=== PATIENT | female | born 1990 ===

== ENCOUNTER 2018-02-21 21:55 | Emergency (ER) | payer BC ==
[2018-02-21 22:07] VITALS: O2SAT 99
--- NOTE | 2018-02-21 22:12 | C.PDOC ---
History Of Present Illness 27 yr old female w/ hx of IBS p/w chest pain. Pt notes CP started at 1600, left sided, stabbing like, without radiation. No pleuritic chest pain or pain w/ deep inspiration. No fall or trauma. No headache, nausea or vomiting. No hx of blood clots, recent flights abroad or recent surgery. No OCP or hormone usage. Pt denies any orthopnea, PND or leg swelling. No family hx of LA or stroke. Pt did not take any medications for her pain. No drug use or smoking. No N/V No other complaints. Time Seen by Provider: 02/21/18 22:10 Chief Complaint (Nursing): Chest Pain Past Medical History Vital Signs: Last Vital Signs Temp 98.4 F 02/21/18 22:03 Pulse 73 02/21/18 22:03 Resp 20 02/21/18 22:03 BP 139/90 02/21/18 22:03 Pulse Ox 99 02/21/18 22:03 Family History: States: No Known Family Hx - Social History Hx Alcohol Use: No Hx Substance Use: No - Immunization History Hx Tetanus Toxoid Vaccination: No Hx Influenza Vaccination: No Hx Pneumococcal Vaccination: No Review Of Systems Constitutional: Negative for: Fever, Chills, Sweats, Weakness, Malaise Eyes: Negative for: Pain, Vision Change ENT: Negative for: Ear Pain, Ear Discharge, Nose Pain, Nose Congestion, Mouth Pain, Mouth Swelling Cardiovascular: Positive for: Chest Pain. Negative for: Palpitations, Orthopnea, Paroxysmal Noc. Dyspnea, Edema, Light Headedness Respiratory: Negative for: Cough, Shortness of Breath, SOB with Excertion, Pleuritic Pain Gastrointestinal: Negative for: Nausea, Vomiting, Abdominal Pain, Constipation, Melena, Hematochezia Genitourinary: Negative for: Dysuria, Frequency, Hematuria Musculoskeletal: Negative for: Neck Pain, Back Pain Skin: Negative for: Rash, Lesions Neurological: Negative for: Weakness, Numbness, Incoordination, Confusion, Seizures Psych: Negative for: Anxiety, Depression, Psychosis, Suicidal ideation Physical Exam - Physical Exam Appears: Well, Non-toxic, No Acute Distress Skin: Normal Color, Warm, Dry Head: Atraumatic, Normacephalic, No Tenderness Eye(s): bilateral: Normal Inspection, PERRL, EOMI Ear(s): Bilateral: Normal Nose: Normal, No Flaring, No Discharge Oral Mucosa: No Moist Tongue: No Normal Appearing, No Swelling Throat: Normal, No Erythema Neck: Normal, Normal ROM, Supple, Other (no ) Chest: Symmetrical, Deformity, No Tenderness Cardiovascular: Rhythm Regular, No Rhythm Irregular, No Edema, No Friction Rub, No Murmur, No JVD Respiratory: Normal Breath Sounds Gastrointestinal/Abdominal: Normal Exam Back: Normal Inspection, No CVA Tenderness Extremity: Normal ROM Extremity: Bilateral: Atraumatic Pulses: Left Dorsalis Pedis: Normal, Right Dorsalis Pedis: Normal Neurological/Psych: Oriented x3, Normal Speech, Normal Cognition, Normal Cranial Nerves, No Cerebellar Signs, Normal Motor, Normal Sensation Extremity: Right: No Drift, Left: No Drift, Upper: No Drift, Lower: No Drift ED Course And Treatment - Laboratory Results Result Diagrams: 02/21/18 22:15 02/21/18 22:15 O2 Sat by Pulse Oximetry: 99 Medical Decision Making Medical Decision MakinF yr old female w/ hx of IBS p/w chest pain, L sided without radiation, sharp stabbing, non pleuritic in nature. Low pretest wells, perced out. CP non cardiac in nature. No orthopnea pnd or leg swelling. Pending imaging and labs Ekg unremarkable: 78, NSR, no Stemi 2305 imaging unremarkable, labs unremarkable chest pain improved clear for d/c home. given retun indications and followup Disposition - Disposition Referrals: [facility] [Outside] Akash Waters MD [Staff Provider] - Disposition: HOME/ ROUTINE Disposition Time: 23:05 Condition: GOOD Additional Instructions: ESTRELLA BASHIR, thank you for letting us take care of you today. Your provider was Hung Bishop and you were treated for CHEST PAINS. The emergency medical care you received today was directed at your acute symptoms. If you were prescribed any medication, please fill it and take as directed. It may take several days for your symptoms to resolve. Return to the Emergency Department if your symptoms worsen, do not improve, or if you have any other problems. Please contact your doctor or call one of the physicians/clinics you have been referred to that are listed on the Patient Visit Information form that is included in your discharge packet. Bring any paperwork you were given at discharge with you along with any medications you are taking to your follow up visit. Our treatment cannot replace ongoing medical care by a primary care provider outside of the emergency department. Thank you for allowing the [facility] team to be part of your care today. If you had an X-Ray or CT scan: A Radiologist will review the ED reading if any change in treatment is needed we will contact you. If you had a blood, urine, or wound culture: It will take several days for the results, if any change in treatment is needed we will contact you. If you had an STI test: It will take 48 hours for the results. Please call after 1 week if you have not heard back. Instructions: Chest Pain That Is Not Caused by the Heart (DC) Forms: [employer] ([place]) - Clinical Impression Clinical Impression: Chest discomfort
[2018-02-21 22:29] LABS: BASO % 0.2 % (0.0-2.0); EOS # 0.2 K/uL (0.0-0.7); EOS % 2.8 % (0.0-4.0); HEMOGLOBIN 10.7 g/dL (11.0-16.0); LYMPH # 4.1 K/uL (1.0-4.3); LYMPH % 47.9 % (20.0-40.0); MEAN CELL VOLUME 76.6 fL (81.0-99.0); MEAN CORPUSCULAR HEMOGLOBIN 24.7 pg (27.0-31.0); MEAN CORPUSCULAR HGB CONC 32.2 g/dL (33.0-37.0); MEAN PLATELET VOLUME 9.4 fL (7.2-11.7); MONO # 0.5 K/uL (0.0-0.8); MONO % 5.8 % (0.0-10.0); NEUT # 3.7 K/uL (1.8-7.0); NEUT % 43.3 % (50.0-75.0); RBC 4.33 Mil/uL (3.80-5.20); RED CELL DISTRIBUTION WIDTH 15.8 % (11.5-14.5); WHITE BLOOD COUNT 8.5 K/uL (4.8-10.8)
[2018-02-21 22:53] LABS: ALB/GLOB RATIO 1.3 (1.0-2.1); ALBUMIN 4.2 g/dL (3.5-5.0); ALT/SGPT 22 U/L (9-52); AST/SGOT 23 U/L (14-36); BLOOD UREA NITROGEN 9 mg/dL (7-17); CALCIUM 9.2 mg/dl (8.6-10.4); GFR NON-AFRICAN AMERICAN > 60
[2018-02-21 23:14] VITALS: BP 122/73; PULSE 77; RESP 16; TEMP 97.9
--- NOTE | 2018-02-22 09:55 | RAD ---
Date of service: 02/21/2018 HISTORY: cp COMPARISON: No prior. TECHNIQUE: Chest PA and lateral FINDINGS: LUNGS: No active pulmonary disease. PLEURA: No significant pleural effusion identified. No pneumothorax apparent. CARDIOVASCULAR: No aortic atherosclerotic calcification present. Normal cardiac size. No pulmonary vascular congestion. OSSEOUS STRUCTURES: No significant abnormalities. VISUALIZED UPPER ABDOMEN: Normal. OTHER FINDINGS: None. IMPRESSION: No acute cardiopulmonary disease appreciated.
--- NOTE | 2018-02-24 12:19 | CARD ---
APPROVED REPORT Date of service: 02/21/2018 EKG Measurement Heart [id number] ID [id number] <Conclusion> Normal sinus rhythm Normal ECG
== END 2018-02-21 23:14 | disposition home or self-care (01) ==
LOC: C.ER 21:55
DX: R07.89 Other chest pain (principal)